=== PATIENT | male | born 1940 | race Caucasian/White ===

== ENCOUNTER 2018-08-14 08:26 | Emergency (ER) | payer BC, OTHER ==
[~2018-08-14] VITALS: Ht 177.8 cm; Wt 67.1 kg
[~2018-08-14 08:26] MED LIST: ADV10050; ALBU17AE25; ALVESCO INHALER; ASPI-676; BUPR-187; CITA-100; CLARITIN; TIOT18CA
[2018-08-14 08:27] VITALS: Ht 177.8 cm; Wt 67.1 kg
--- NOTE | 2018-08-14 09:12 | ERD ---
ER Documentation Chief Complaint Chief Complaint sent by PCP to R/O DVT of bilat legs legs red/swollen HPI 77-year-old male with a history of COPD and recently diagnosed hypertension the ED by his PMD, Dr. Rodrigue Lobato for evaluation of worsening right greater than left lower extremity pain, swelling and redness. Pain is mild, sharp and nonradiating. No relieving or exacerbating factors. Patient has had the symptoms since December 2017. Denies chest pain, palpitations or shortness of breath. No exertional dyspnea, PND or orthopnea. No history of trauma or injury. No fevers or chills. ROS All systems reviewed and are negative except as per history of present illness. Medications Home Meds Reported Medications Diclofenac Sodium* (Voltaren* Gel) 1% -100 Gm Gel, 2 GM TOP TID, #1 TUB 08/14/18 Umeclidinium Brm-Vilanterol Tr (Anoro Ellipta) 62.5-25 Mcg Disk.w.dev, 1 EACH INHALATION DAILY, #1 DISK 08/14/18 Fluticasone Furoate (Arnuity Ellipta) 200 Mcg Blst.w.dev, 200 MCG INHALATION DAILY, #1 INHALER 08/14/18 Bupropion Hcl* (Bupropion XL*) 150 Mg Tab.er.24h, 150 MG PO DAILY, TAB.SA 08/14/18 Meloxicam* (Mobic*) 15 Mg Tablet, 15 MG PO DAILY, #30 TAB 08/14/18 Lisinopril/Hydrochlorothiazide (Lisinopril-Hctz 10-12.5 mg Tab) 1 Each Tablet, 1 EACH PO DAILY, TAB 08/14/18 Discontinued Reported Medications [[place] Inhaler] No Conflict Check 09/09/09 Aspirin (Spenser Child) 81 Mg Chew 09/09/09 Citalopram Hydrobromide (Celexa) 40 Mg Tablet 09/09/09 Claritin 09/09/09 Albuterol (Albuterol) 17 Gm Aerosol 09/09/09 Tiotropium [place]* (Spiriva*) 18 Mcg Cap.w.dev 09/09/09 Salmeterol Xinaf/Fluticasone* (Advair 100/50 Diskus*) 1 Inh Inha 09/09/09 Bupropion Hcl* (Wellbutrin SR*) 100 Mg Tablet.sa 09/09/09 Allergies Allergies: Coded Allergies: No Known Drug Allergy (Verified Allergy, Unknown, 08/14/18) PMhx/Soc History of Surgery: Yes (Hernia repair) Anesthesia Reaction: No Hx Neurological Disorder: No Hx Respiratory Disorders: Yes (COPD) Hx Cardiac Disorders: No Hx Psychiatric Problems: No Hx Miscellaneous Medical Probl: No Hx Alcohol Use: No Hx Substance Use: No Hx Tobacco Use: No Smoking Status: Former smoker FmHx No hypercoagulability Physical Exam Vitals Vital Signs Date Temp Pulse Resp B/P (MAP) Pulse Ox O2 O2 Flow FiO2 Time Delivery Rate 08/14/18 98.1 72 16 152/72 99 Room Air 12:35 (98) 08/14/18 97.9 74 16 165/72 99 Room Air 09:40 (103) 08/14/18 97.9 89 18 185/84 99 08:27 (117) Physical Exam Const: Alert, no acute distress. Head: Atraumatic Eyes: Normal Conjunctiva ENT: Normal External Ears, Nose and Mouth. Neck: Full range of motion. JVD. Resp: Breath sounds equal and clear to auscultation bilaterally Cardio: Regular rate and rhythm, no murmurs Abd: Soft, non tender, non distended. Normal bowel sounds Skin: No petechiae or rashes Back: No midline or flank tenderness Ext: Right greater than left lower extremity, below the knee, swelling, erythema and mild tenderness. No fluctuance or crepitus. No pitting edema. No lymphadenopathy. Pulses 2+. Neur: Awake and alert. No focal deficit Psych: Patient does not appear anxious or depressed. Result Diagram: 08/14/1835 08/14/18 0935 Results 24 hrs Laboratory Tests Test 08/14/18 09:35 White Blood Count 3.2 10^3/ul Red Blood Count 3.42 10^6/ul Hemoglobin 11.5 g/dl Hematocrit 33.5 % Mean Corpuscular Volume 98.0 fl Mean Corpuscular Hemoglobin 33.6 pg Mean Corpuscular Hemoglobin Concent 34.3 g/dl Red Cell Distribution Width 12.0 % Platelet Count 208 10^3/UL Mean Platelet Volume 8.6 fl Immature Granulocytes % 0.300 % Neutrophils % 58.1 % Lymphocytes % 18.8 % Monocytes % 16.0 % Eosinophils % 4.9 % Basophils % 1.9 % Nucleated Red Blood Cells % 0.0 /100WBC Immature Granulocytes # 0.010 10^3/ul Neutrophils # 1.9 10^3/ul Lymphocytes # 0.6 10^3/ul Monocytes # 0.5 10^3/ul Eosinophils # 0.2 10^3/ul Basophils # 0.1 10^3/ul Nucleated Red Blood Cells # 0.0 10^3/ul Sodium Level 126 mmol/L Potassium Level 4.3 mmol/L Chloride Level 90 mmol/L Carbon Dioxide Level 29 mmol/L Anion Gap 7 Blood Urea Nitrogen 16 mg/dl Creatinine 0.82 mg/dl Est Glomerular Filtrat Rate mL/min mL/min Glucose Level 75 mg/dl Calcium Level 8.9 mg/dl Procedures/MDM DOCUMENTS REVIEWED: ED nurse, prior records IMAGING: PROCEDURE: US bilateral lower extremity Venous. CLINICAL INDICATION: Bilateral leg swelling TECHNIQUE: Multiple sonographic images of the bilateral lower extremity deep venous system was obtained utilizing grayscale, color-flow, compressive sonography and doppler imaging with augmentation. COMPARISON: None. FINDINGS: There is normal compressibility and flow within the bilateral common femoral, deep femoral, superficial femoral, posterior tibial, peroneal and popliteal veins. IMPRESSION: No sonographic evidence for deep venous thrombosis of the right and left lower extremities. RPTAT:AAJJ Physician Panchito Date Time Electronically viewed and signed by Physician Panchito on 08/14/2018 10:58 BM/ MEDICAL DECISION MAKIN-year-old male with a history of COPD and recently diagnosed hypertension the ED by his PMD, Dr. Rodrigue Lobato for evaluation of worsening right greater than left lower extremity pain, swelling and redness. CBC reveals mild leukopenia and anemia. Chemistry significant for hyponatremia but no renal insufficiency. Venous doppler negative for DVT. No signs of cellulitis, lymphangitis or necrotizing fasciitis. An occult neoplasm is not ruled out. Patient understands the etiology of his symptoms are not established and further outpatient evaluation is mandatory. Results were discussed with patient's PCP, Dr Lobato. Stable for discharge with precautionary instructions and outpatient follow-up as counseled. Counseled patient regarding diagnostic workup, diagnosis and need for followup. Understands to return to ED if symptoms recur, worsen or any other concerns. Departure Diagnosis: Primary Impression: Swelling of both lower extremities Additional Impression: Hyponatremia Condition: Stable GABRIELA FORD MD Aug 14, 2018 09:12
[2018-08-14] MEDS ORDERED: LISI1TAB4 PO (11:05)
[2018-08-14] MEDS ORDERED: BUPR150T6 PO (11:06)
[2018-08-14] MEDS ORDERED: MELO15TA30 PO (11:06)
[2018-08-14] MEDS ORDERED: FLUT200B INHALATION (11:08)
[2018-08-14] MEDS ORDERED: UMEC1DIS INHALATION (11:09)
[2018-08-14] MEDS ORDERED: DICL100G37 TOP (11:11)
[2018-08-14 12:35] VITALS: BP 152/72; PULSE 72; RESP 16
== END 2018-08-14 12:36 | disposition home or self-care (01) ==
LOC: E/R 08:26
DX: M79.89 Other specified soft tissue disorders (principal); J44.9 Chronic obstructive pulmonary disease, unspecified; I10 Essential (primary) hypertension; E87.1 Hypo-osmolality and hyponatremia; Z79.82 Long term (current) use of aspirin
CPT/HCPCS: 80048; 85025; 93970